=== PATIENT | female | born 1990 | race African-American/Black ===

== ENCOUNTER 2016-09-18 11:20 | Emergency (ER) | payer OTHER ==
[~2016-09-18] VITALS: Ht 160 cm; Wt 59.0 kg
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
[2016-09-18 13:04] LABS: ABSOLUTE BASOPHIL COUNT 0 /CUMM (0.0-0.2); ABSOLUTE EOSINOPHIL COUNT 0 /CUMM (0.0-0.7); ABSOLUTE GRANULOCYTE CT 2.2 /CUMM (1.4-6.5); ABSOLUTE LYMPH COUNT 2.3 /CUMM (1.2-3.4); ABSOLUTE MONOCYTE COUNT 0.4 /CUMM (0.10-0.60); BASOPHIL % 0.5 % (0.0-2.0); EOSINOPHIL % 0.4 % (0-5); GRANULOCYTE % 44.2 % (42.2-75.2); HEMATOCRIT 36.9 % (37-47); MEAN CORPUSCULAR HGB 29.3 PG (27.0-31.0); MEAN CORPUSCULAR VOLUME 88.8 FL (81.0-99.0); MEAN PLATELET VOLUME 8.7 FL (7.4-10.4); PLATELET COUNT 237 /CUMM (130-400); RBC DISTRIBUTION WIDTH 15.4 % (11.5-14.5); RED BLOOD CELL CT 4.16 /CUMM (4.20-5.40)
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
[2016-09-18] MEDS ORDERED: TRAMADOL HCL50 M1 PO (16:16)
[2016-09-18 17:10] VITALS: BP 111/61
== END 2016-09-18 18:16 ==
LOC: ERH 11:20
PROVIDERS: Physician Assistant
DX: R07.9 Chest pain, unspecified (principal)
CPT/HCPCS: 81001; 93005; 93010; 96374; 96376; J3101

== ENCOUNTER 2017-11-18 11:47 | Inpatient (IN) | payer OTHER ==
[~2017-11-18] VITALS: Ht 160 cm; Wt 68.9 kg
[~2017-11-18 11:47] MED LIST: CITRANATAL B-C1 EACH PO; DICLEGIS DR 101 EACH PO; TRAMADOL HCL50 M1 PO
[2017-11-18 13:04] VITALS: BP 128/79
[2017-11-18 13:04] LABS: ABSOLUTE BASOPHIL COUNT 0 /CUMM (0.0-0.2); ABSOLUTE EOSINOPHIL COUNT 0 /CUMM (0.0-0.7); ABSOLUTE GRANULOCYTE CT 4.7 /CUMM (1.4-6.5); ABSOLUTE LYMPH COUNT 1.2 /CUMM (1.2-3.4); ABSOLUTE MONOCYTE COUNT 0.5 /CUMM (0.10-0.60); BASOPHIL % 0.3 % (0.0-2.0); EOSINOPHIL % 0.1 % (0-5); HEMATOCRIT 30.1 % (37-47); MEAN CORPUSCULAR HGB 28.4 PG (27.0-31.0); MEAN CORPUSCULAR HGB CONC 33.3 G/DL (33.0-37.0); MEAN CORPUSCULAR VOLUME 85.3 FL (81.0-99.0); MEAN PLATELET VOLUME 8.5 FL (7.4-10.4); PLATELET COUNT 254 /CUMM (130-400); RBC DISTRIBUTION WIDTH 16.1 % (11.5-14.5); RED BLOOD CELL CT 3.53 /CUMM (4.20-5.40); WHITE BLOOD CELL COUNT 6.4 /CUMM (4.8-10.8)
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
--- NOTE | 2017-11-18 19:19 | PN- Obstetrical ---
Subjective Subjective: C/O PAION Objective Last 24 Hrs of Vital Signs/I&O Vital Signs Date Time Temp Pulse Resp B/P B/P Pulse O2 O2 Flow FiO2 Mean Ox Delivery Rate 11/18 1304 128/79 Intake & Output 11/18 1600 11/18 0800 11/18 0000 Intake Total Output Total Balance Patient 152 lb Weight Physical Exam: PE PETITE BF I N LABOR HEENT ANICTERIC ABD SOFT BETWEEN CTX EXT -EDEMA-HOMANS Obstetric Exam Dilation (cm): 4 Effacement (%): 90 Station: 0 Membranes: SROM Fluid: clear (THERE WSA AFOREBAG AROM PRIOR ) Multiple Gestation? No Contractions: 3 -4 Assessment/Plan Assessment/Plan ASSESS 41 WEEKS PLAN PITOCIN [facility]
--- NOTE | 2017-11-19 10:07 | Operative Report ---
Operative/Inv Procedure Report Surgery Date: 11/19/17 Name of Procedure: Primary low flap transverse section via Pfannenstiel skin incision Pre-Operative Diagnosis: Nonreassuring heart tracing arrest of descent Post-Operative Diagnosis: Same and contracted pelvis Estimated Blood Loss: 500 Surgeon/Vp Corporate Partnerships: Eliza Lucas MD and Dr. Claudio Black [facility] Anesthesia: block Operative/Procedure Note Note: Procedure note patient was taken the operating room placed supine position after adequate skin testing for all epidural anesthesia for surgery timeout was performed the abdomen was prepped and draped so fashion skin was cut was carried down to rectus fascia which was cut in curvilinear fashion I direction peritoneal cavity was entered high into the abdomen patient tolerated that well at this point the low bladed [place] was placed and lower in the incision the visceral peritoneum the uterus was nicked dissected bluntly off of the on uterus on the bladder blade was replaced to protect the bladder in the lower uterine segment uses entered on with a knife entered with the back of knife dissected bluntly once instruments removed from the field the was delivered over the abdominal wall from P position the cord was doubly clamped and cut and infant was handed rack carrier was waiting delivering to aid in resuscitation placenta was delivered manually noted to be intact was wiped clean with 2 wet dry last insurance free of adherent membranes intravenous Pitocin and intramyometrial Pitocin and Methergine were used to aid in uterine contractility which was apparent the uterus was oversewn running locking sutures times to interrupted [id number] were used for hemostasis apparent using segments the abdomen was area close amounts warm saline the incision was reinspected for hemostasis which was apparent the peritoneum was reapproximated using 30 the fascia was reapproximated to continue sutures of #1 subcutaneous tissue was Bovie coagulated skin was reapproximated hung at the end the case counts correct urine was clear mother and infant were transferred recovery room awake alert with counts correct
[2017-11-20 07:50] LABS: ABSOLUTE BASOPHIL COUNT 0 /CUMM (0.0-0.2); ABSOLUTE EOSINOPHIL COUNT 0 /CUMM (0.0-0.7); ABSOLUTE GRANULOCYTE CT 8.3 /CUMM (1.4-6.5); ABSOLUTE LYMPH COUNT 1.3 /CUMM (1.2-3.4); ABSOLUTE MONOCYTE COUNT 0.6 /CUMM (0.10-0.60); BASOPHIL % 0.2 % (0.0-2.0); EOSINOPHIL % 0.1 % (0-5); GRANULOCYTE % 81.4 % (42.2-75.2); MEAN CORPUSCULAR HGB 28.3 PG (27.0-31.0); MEAN CORPUSCULAR HGB CONC 33.1 G/DL (33.0-37.0); MEAN CORPUSCULAR VOLUME 85.7 FL (81.0-99.0); PLATELET COUNT 183 /CUMM (130-400); RBC DISTRIBUTION WIDTH 15.8 % (11.5-14.5)
[2017-11-20 08:16] LABS: WHITE BLOOD CELL COUNT 10.1 /CUMM (4.8-10.8)
[2017-11-20 08:17] LABS: HEMATOCRIT 20.9 % (37-47); RED BLOOD CELL CT 2.44 /CUMM (4.20-5.40)
[2017-11-20] MEDS ORDERED: IBUPROFEN800 M1 PO (11:59)
[2017-11-20] MEDS ORDERED: PERCOCET 5-3251 EACH PO (11:59)
[2017-11-21 08:03] LABS: ABSOLUTE BASOPHIL COUNT 0 /CUMM (0.0-0.2); ABSOLUTE EOSINOPHIL COUNT 0 /CUMM (0.0-0.7); ABSOLUTE GRANULOCYTE CT 7.4 /CUMM (1.4-6.5); ABSOLUTE MONOCYTE COUNT 0.4 /CUMM (0.10-0.60); BASOPHIL % 0.3 % (0.0-2.0); MEAN CORPUSCULAR HGB 28.6 PG (27.0-31.0); MEAN PLATELET VOLUME 8.9 FL (7.4-10.4)
[2017-11-21 08:16] LABS: ABSOLUTE LYMPH COUNT 1.5 /CUMM (1.2-3.4); EOSINOPHIL % 0.3 % (0-5); HEMATOCRIT 21.4 % (37-47); MEAN CORPUSCULAR HGB CONC 33.5 G/DL (33.0-37.0); MEAN CORPUSCULAR VOLUME 85.3 FL (81.0-99.0); PLATELET COUNT 198 /CUMM (130-400); RBC DISTRIBUTION WIDTH 15.8 % (11.5-14.5); RED BLOOD CELL CT 2.51 /CUMM (4.20-5.40); WHITE BLOOD CELL COUNT 9.4 /CUMM (4.8-10.8)
== END 2017-11-21 11:25 | DRG 540 ==
LOC: CBCO 11:47 → GNO 12:27
PROVIDERS: Specialist
PROC: 10D00Z1 Extraction of Products of Conception, Low, Open Approach (ICD-10-PCS; principal; 2017-11-19)
DX: O76 Abnormality in fetal heart rate and rhythm complicating labor and delivery (principal); Z3A.41 41 weeks gestation of pregnancy; Z37.0 Single live birth; O99.824 Streptococcus B carrier state complicating childbirth; O32.4XX0 Maternal care for high head at term, not applicable or unspecified
CPT/HCPCS: GNOP; GNOS; 36415; 81003; 84112; 87086; J0290; J0595; J0690; J1650; J1885; J2210; J7120